=== PATIENT | male | born 1990 | race Caucasian/White ===

== ENCOUNTER 2020-09-20 11:47 | Emergency (ER) | payer SELFPAY ==
[~2020-09-20] VITALS: Ht 185.4 cm; Wt 70.3 kg
--- NOTE | 2020-09-20 12:11 | NUR ---
[email or web address], medical screening exam in progress
[2020-09-20 12:36] LABS: HEMATOCRIT 46.6 % (36.7-47.1); MEAN CORPUSCULAR HEMOGLOBIN 19.2 uug (23.8-33.4); MEAN CORPUSCULAR VOLUME 59.5 fL (73.0-96.2); PLATELET COUNT (AUTO) 353 K/uL (152-348)
[2020-09-20 12:40] LABS: CARBON DIOXIDE 29 mmol/L (21-32); CHLORIDE 102 mmol/L (98-107); CREATININE 1.1 mg/dL (0.6-1.3); GLUCOSE 130 mg/dL (74-106); POTASSIUM 4.1 mmol/L (3.5-5.1); UREA NITROGEN, BLOOD 21 mg/dL (7-18)
[2020-09-20 12:45] LABS: ETHANOL < 3 MG/DL (0-0)
[2020-09-20 12:46] LABS: ACETAMINOPHEN < 2.0 ug/mL (10-30); ALANINE AMINOTRANSFERASE 9 U/L (16-63); ALKALINE PHOSPHATASE 97 U/L (50-136); ASPARTATE AMINOTRANSFERASE 12 U/L (15-37); BILIRUBIN,DIRECT 0.2 mg/dL (0.0-0.2); TOTAL PROTEIN, SERUM 7.7 g/dL (6.4-8.2)
[2020-09-20 13:10] LABS: THYROID STIMULATING HORMONE 1.009 mIU/mL (0.358-3.740)
--- NOTE | 2020-09-20 13:11 | NUR ---
Urine cup & urinal are bedside, pending urine sample.
--- NOTE | 2020-09-20 13:59 | NUR ---
Patient is resting comfortably on gurney with eyes closed. Patient immediately opens eyes with name call in a soft voice, NAD, respiration:easy.
[2020-09-20] MEDS ORDERED: levETIRAcetam IV 1,000 MG in IV DEXTROSE 5% 100 ML IV ONE (14:45)
[2020-09-20] MEDS ORDERED: levETIRAcetam 500 MG/5 ML VIAL IV ONE (14:56)
[2020-09-20 17:19] LABS: *BILIRUBIN,URIN NEGATIVE (NEGATIVE); *BLOOD, URINE NEGATIVE (NEGATIVE); *CLARITY,URINE SLIGHTLY CLOUDY (CLEAR); *COLOR,URINE YELLOW (YELLOW); *KETONES,URINE 1+ (NEGATIVE); *UROBILINOGEN,URINE 0.2 E.U./dl (NORMAL); LEUKOCYTE ESTERASE ,URINE NEGATIVE (NEGATIVE); NITRITE, URINE NEGATIVE (NEGATIVE); UGLUCOSE NEGATIVE (NEGATIVE)
[2020-09-20 17:28] LABS: *AMPHETAMINE, URINE NEGATIVE (NEGATIVE); *CANNABINOID, URINE NEGATIVE (NEGATIVE); *COCCAINE, URINE POSITIVE (NEGATIVE); *OPIATE, URINE NEGATIVE (NEGATIVE); *PHENCYCLIDINE SCREEN,URINE NEGATIVE (NEGATIVE)
[2020-09-20 17:35] LABS: BACTERIA,URINE NONE SEEN /HPF (NONE SEEN); RBC,URINE 0-3 /HPF (0-3); SQUAMOUS EPITHELIAL CELL,UR NONE SEEN /HPF (NONE SEEN); WBC,URINE 0-3 /HPF (0-3)
--- NOTE | 2020-09-20 17:35 | NUR ---
Patient is eating dinner with good appetite, still for disposition.
[2020-09-20 17:36] LABS: URINE AMORPHOUS URATE MODERATE /HPF
[2020-09-20] MEDS ORDERED: LEVE500T9 PO (18:11)
--- NOTE | 2020-09-20 18:22 | NUR ---
IV removed. Catheter intact and site benign. Pressure and 4x4 gauze applied to site. No bleeding noted.
--- NOTE | 2020-09-20 18:29 | NUR ---
Patient discharged to home in stable condition with steady gait. Patient left with family (grandmother?). Written and verbal after care instructions given to patient. Patient verbalized understanding and compliance of instructions. Stressed follow up with primary doctor, neurologist and psychiatrist or return to ER for worsening s/s.
== END 2020-09-20 18:30 | disposition home or self-care (01) ==
LOC: ER 11:48
DX: G40.909 Epilepsy, unspecified, not intractable, without status epilepticus (principal); F11.10 Opioid abuse, uncomplicated; Z88.0 Allergy status to penicillin; Z91.030 Bee allergy status; S01.512A Laceration without foreign body of oral cavity, initial encounter; Y33.XXXA Other specified events, undetermined intent, initial encounter; Y92.89 Other specified places as the place of occurrence of the external cause
CPT/HCPCS: 36415; 70450; 71045; 80048; 80076; 80299; 80307; 80320; 81001; 82140; 84443; 84484; 85025; 93005; 96365; 99285; J1953; J7060; 70030-TC; A4663; G0480